=== PATIENT | male | born 1990 | race Caucasian/White ===

== ENCOUNTER 2023-04-03 08:56 | Emergency (ER) | payer BC ==
[~2023-04-03] VITALS: Ht 177.8 cm; Wt 72.6 kg
[2023-04-03] MEDS ORDERED: METH4TAB3 PO (10:12)
[2023-04-03] MEDS ORDERED: DIAZ2TAB PO (10:12)
[2023-04-03 10:24] VITALS: BP 142/85; TEMP 98.2; O2SAT 99
== END 2023-04-03 10:24 | disposition home or self-care (01) ==
LOC: ER 09:05
DX: S13.9XXA Sprain of joints and ligaments of unspecified parts of neck, initial encounter (principal); F17.200 Nicotine dependence, unspecified, uncomplicated; X58.XXXA Exposure to other specified factors, initial encounter; Y93.89 Activity, other specified; Y92.89 Other specified places as the place of occurrence of the external cause; Y99.8 Other external cause status
CPT/HCPCS: 72050-TC